=== PATIENT | female | born 1955 | race Two or more races ===

== ENCOUNTER 2025-10-27 10:45 | Outpatient (CLI) | payer OTHER | END 2025-10-27 10:51 | disposition home or self-care (01) | LOC: TOM 10:45 | PROVIDERS: ATTEND Family Medicine | DX: R10.9 Unspecified abdominal pain (principal); R19.00 Intra-abdominal and pelvic swelling, mass and lump, unspecified site; C25.9 Malignant neoplasm of pancreas, unspecified | CPT/HCPCS: 74170; Q9965 ==